=== PATIENT | male | born 1970 | race Two or more races ===

== ENCOUNTER 2025-01-19 03:37 | Emergency (ER) | payer MEDICARE, OTHER ==
[~2025-01-19] VITALS: Ht 172.7 cm; Wt 66.2 kg
[2025-01-19] MEDS ORDERED: KETOROLAC TROMETHAMINE 15 MG/ML VIAL ONE (04:07)
[2025-01-19] MEDS: KETOROLAC TROMETHAMINE 15 MG/ML VIAL IM ONE (04:13)
[2025-01-19] MEDS ORDERED: IBUP-1957 PO (04:32)
[2025-01-19 05:53] VITALS: BP 150/70; TEMP 98; O2SAT 96
== END 2025-01-19 05:54 | disposition home or self-care (01) ==
LOC: ER 03:52
DX: M79.672 Pain in left foot (principal); L84 Corns and callosities; Z59.00 Homelessness unspecified
CPT/HCPCS: 99283; 96372; 73630; J1885